=== PATIENT | female | born 1945 | race Caucasian/White ===

== ENCOUNTER 2017-09-09 12:20 | Inpatient (IN) | payer MEDICARE, MEDICAID ==
[~2017-09-09] VITALS: Ht 162.6 cm; Wt 95.8 kg
[2017-09-09] MEDS ORDERED: NITROGLYCERIN 0.4 MG BOTTLE (25 TABS) SL PRN ×2 (18:30→23:00)
[2017-09-09] MEDS ORDERED: NITROGLYCERIN 0.4 MG/SPRAY SL PRN (18:30)
[2017-09-09 18:32] VITALS: BP 119/77
[2017-09-09 18:56] LABS: BASOPHILS # (AUTO) 0.09 x10^3/uL (0-0.1); BASOPHILS % (AUTO) 2 % (0-1); EOSINOPHILS # (AUTO) 0.19 x10^3/uL (0-0.4); EOSINOPHILS % (AUTO) 4 % (1-7); LYMPHOCYTES # (AUTO) 1.46 x10^3/uL (1-3.4); LYMPHOCYTES % (AUTO) 29 % (22-44); MD NO; MEAN CORPUSCULAR HEMOGLOBIN 35.2 pg (27.0-34.8); MEAN CORPUSCULAR HGB CONC 33.7 g/dL (32.4-35.8); MEAN CORPUSCULAR VOLUME 104.3 fL (80-100); MEAN PLATELET VOLUME 8.3 fL (7.4-10.4); MONOCYTES # (AUTO) 0.32 x10^3/uL (0.2-0.8); MONOCYTES % (AUTO) 6 % (2-9); NEUTROPHILS # (AUTO) 3.04 x10^3/uL (1.8-6.8); NEUTROPHILS % (AUTO) 60 % (42-75); PLATELET COUNT 218 x10^3/uL (130-400); RED BLOOD COUNT 3.64 x10^6/uL (3.82-5.3); RED CELL DISTRIBUTION WIDTH 13.4 % (9.6-15.2)
[2017-09-09] MEDS ORDERED: PLEASE ENTER ALLERGIES MC SCH (19:00)
[2017-09-09 19:04] LABS: ANION GAP 4 mmol/L (5-15); CALCIUM 9.2 mg/dL (8.5-10.1); CHLORIDE 104 mmol/L (98-107); CREATININE 0.72 mg/dL (0.55-1.02)
[2017-09-09] MEDS ORDERED: PLEASE ENTER HEIGHT AND WEIGHT MC SCH (21:30)
[2017-09-09] MEDS ORDERED: ASPI-496 PO (21:44)
[2017-09-09] MEDS ORDERED: OXYC-302 PO (21:44)
[2017-09-09] MEDS ORDERED: PARO40TA61 PO (21:44)
[2017-09-09] MEDS ORDERED: ROPI0.25 PO (21:53)
[2017-09-09] MEDS ORDERED: GABA300C PO (21:53)
[2017-09-09] MEDS ORDERED: MELO15TA6 PO (21:53)
[2017-09-09] MEDS ORDERED: TIOT18CA INH (21:53)
[2017-09-09] MEDS ORDERED: LEVO50TA5 PO (21:53)
[2017-09-09] MEDS ORDERED: FLUT9.9S NS (21:53)
[2017-09-09] MEDS ORDERED: POTA10TA11 PO (21:53)
[2017-09-09] MEDS ORDERED: FURO-93 PO (21:56)
[2017-09-09] MEDS ORDERED: PRAM0.125 PO (22:03)
[2017-09-09] MEDS ORDERED: POLYETHYLENE GLYCOL 17 GM PACKET PO PRN (23:00)
[2017-09-09] MEDS ORDERED: ACETAMINOPHEN 325 MG TABLET PO PRN (23:00)
[2017-09-09] MEDS ORDERED: PROMETHAZINE 25 MG/ML, 1ML IM PRN (23:00)
[2017-09-09] MEDS: IPRATROPIUM 0.5 MG/2.5 ML INHA HHN SCH (23:00)
[2017-09-09] MEDS ORDERED: ONDANSETRON 2MG/ML, 2ML IVPush PRN (23:00)
[2017-09-09] MEDS ORDERED: hydrALAzine 20 MG/ML, 1ML IVPush PRN (23:00)
[2017-09-09] MEDS ORDERED: BISACODYL 10 MG SUPP PR PRN (23:00)
[2017-09-09] MEDS ORDERED: DOCUSATE 100 MG CAPSULE PO PRN (23:00)
[2017-09-09] MEDS ORDERED: ONDANSETRON ODT 4 MG PO PRN (23:00)
[2017-09-09] MEDS ORDERED: GABAPENTIN 300 MG CAPSULE ONE (23:26)
[2017-09-09 23:30] LABS: FREE T4 (FREE THYROXINE) 0.86 ng/dL (0.76-1.46); THYROID STIMULATING HORMONE 1.26 mIU/L (0.358-3.740)
[2017-09-09] MEDS ORDERED: ALBUTEROL SULFATE 2.5 MG/3 ML NPPB PRN (23:30)
[2017-09-09] MEDS: OXYcodone/APAP 5/325MG TABLET PO PRN (23:36)
[2017-09-09] MEDS: PRAMIPEXOLE 0.125MG TABLET PO SCH (23:37)
[2017-09-09] MEDS: HEPARIN 5,000 UNITS/ML, 1ML SQ SCH (23:37)
[2017-09-09] MEDS: GABAPENTIN 300 MG CAPSULE PO SCH (23:37)
[2017-09-10 01:19] VITALS: BP 108/67
[2017-09-10 02:32] LABS: MICROSCOPIC AUTO
[2017-09-10 02:39] LABS: CULTURE INDICATED? YES
[2017-09-10] MEDS: IPRATROPIUM 0.5 MG/2.5 ML INHA HHN SCH ×4 (05:00→20:48)
[2017-09-10] MEDS: ASPIRIN 325 MG TABLET EC PO SCH (05:12)
[2017-09-10 05:42] LABS: BASOPHILS # (AUTO) 0.05 x10^3/uL (0-0.1); BASOPHILS % (AUTO) 1 % (0-1); EOSINOPHILS # (AUTO) 0.22 x10^3/uL (0-0.4); EOSINOPHILS % (AUTO) 5 % (1-7); LYMPHOCYTES % (AUTO) 36 % (22-44); MD NO; MEAN CORPUSCULAR HEMOGLOBIN 35.1 pg (27.0-34.8); MEAN CORPUSCULAR HGB CONC 33.9 g/dL (32.4-35.8); MEAN CORPUSCULAR VOLUME 103.7 fL (80-100); MEAN PLATELET VOLUME 8.7 fL (7.4-10.4); MONOCYTES # (AUTO) 0.32 x10^3/uL (0.2-0.8); MONOCYTES % (AUTO) 6 % (2-9); NEUTROPHILS # (AUTO) 2.59 x10^3/uL (1.8-6.8); NEUTROPHILS % (AUTO) 52 % (42-75); PLATELET COUNT 207 x10^3/uL (130-400); RED BLOOD COUNT 3.67 x10^6/uL (3.82-5.3); RED CELL DISTRIBUTION WIDTH 13.5 % (9.6-15.2)
[2017-09-10 05:52] LABS: CHLORIDE 105 mmol/L (98-107)
[2017-09-10 06:02] LABS: ALANINE AMINOTRANSFERASE 25 U/L (12-78); ALBUMIN 3.3 g/dL (3.4-5.0); ALKALINE PHOSPHATASE 56 U/L (45-117); ANION GAP 6 mmol/L (5-15); BILIRUBIN,TOTAL 0.5 mg/dL (0.2-1.0); CALCIUM 8.6 mg/dL (8.5-10.1); CHOL/HDL RATIO 3.2; CHOLESTEROL, TOTAL 198 mg/dL (140-239); CREATININE 0.68 mg/dL (0.55-1.02); HDL CHOL % 31 % (28-40); HDL CHOLESTEROL (DIRECT) 62 mg/dL (40-60); LDL CHOLESTEROL,CALCULATED 118 mg/dL (54-169); LDL/HDL RATIO 1.9 (0.5-3.0); TOTAL PROTEIN 6.8 g/dL (6.4-8.2); TRIGLYCERIDES 91 mg/dL (50-200); VLDL CHOLESTEROL 18 mg/dL (0-25)
[2017-09-10] MEDS: HEPARIN 5,000 UNITS/ML, 1ML SQ SCH (07:00)
[2017-09-10 07:49] VITALS: BP 107/69
[2017-09-10 07:51] LABS: INTERNATIONAL NORMALIZED RATIO 0.95 (0.93-1.1); PROTHROMBIN TIME 9.9 Seconds (9.6-11.5)
[2017-09-10] MEDS ORDERED: GABAPENTIN 300 MG CAPSULE PO SCH (09:00)
[2017-09-10] MEDS: PAROXETINE 20 MG TABLET PO SCH (09:26)
[2017-09-10] MEDS: LEVOTHYROXINE 50 MCG TABLET PO SCH (09:26)
[2017-09-10] MEDS: GABAPENTIN 300 MG CAPSULE PO SCH ×3 (09:26→20:44)
[2017-09-10] MEDS: PRAMIPEXOLE 0.125MG TABLET PO SCH ×3 (09:26→20:44)
[2017-09-10] MEDS: OXYcodone/APAP 5/325MG TABLET PO PRN ×2 (09:26→23:49)
[2017-09-10 13:10] VITALS: BP 112/74
[2017-09-10] MEDS ORDERED: FENTANYL PF 100 MCG/2ML ONE (14:56)
[2017-09-10] MEDS ORDERED: MIDAZOLAM 1 MG/ML, 2ML ONE (14:56)
[2017-09-10] MEDS ORDERED: HEPARIN 1,000 UNITS/ML, 10ML ONE (14:56)
[2017-09-10] MEDS ORDERED: LIDOCAINE-MPF 2% ,5ML ONE (14:56)
[2017-09-10] MEDS ORDERED: VERAPAMIL 2.5 MG/ML, 2ML ONE (14:56)
[2017-09-10 19:16] VITALS: BP 95/61
[2017-09-10] MEDS ORDERED: TEMPLATE NON-FORMULARY MED. (Aspirin** (Aspir 81**) 81 MG) PO SCH (21:00)
[2017-09-11 00:38] VITALS: BP 96/53
[2017-09-11] MEDS: IPRATROPIUM 0.5 MG/2.5 ML INHA HHN SCH ×4 (02:32→23:00)
[2017-09-11 05:04] LABS: ALBUMIN 3.2 g/dL (3.4-5.0); ANION GAP 7 mmol/L (5-15); CALCIUM 8.7 mg/dL (8.5-10.1); CHLORIDE 103 mmol/L (98-107); CREATININE 0.77 mg/dL (0.55-1.02)
[2017-09-11] MEDS: ASPIRIN 325 MG TABLET EC PO SCH (05:42)
[2017-09-11] MEDS: GABAPENTIN 300 MG CAPSULE PO SCH ×3 (07:43→19:43)
[2017-09-11] MEDS: LEVOTHYROXINE 50 MCG TABLET PO SCH (07:43)
[2017-09-11] MEDS: PAROXETINE 20 MG TABLET PO SCH (07:43)
[2017-09-11] MEDS: PRAMIPEXOLE 0.125MG TABLET PO SCH ×3 (07:44→19:43)
[2017-09-11 08:40] VITALS: BP 100/58
[2017-09-11 13:44] VITALS: BP 103/64
[2017-09-11] MEDS: HEPARIN 5,000 UNITS/ML, 1ML SQ SCH ×2 (16:11→23:51)
[2017-09-11 19:03] VITALS: BP 105/67
[2017-09-12 01:01] VITALS: BP 97/61
[2017-09-12] MEDS: PRAMIPEXOLE 0.125MG TABLET PO SCH ×3 (03:55→19:44)
[2017-09-12] MEDS: IPRATROPIUM 0.5 MG/2.5 ML INHA HHN SCH (05:00)
[2017-09-12] MEDS: ASPIRIN 325 MG TABLET EC PO SCH (05:57)
[2017-09-12 07:06] VITALS: BP 102/64
[2017-09-12] MEDS ORDERED: IPRATROPIUM 0.5 MG/2.5 ML INHA ONE (07:14)
[2017-09-12] MEDS: HEPARIN 5,000 UNITS/ML, 1ML SQ SCH ×2 (07:30→16:48)
[2017-09-12] MEDS: LEVOTHYROXINE 50 MCG TABLET PO SCH (08:44)
[2017-09-12] MEDS: PAROXETINE 20 MG TABLET PO SCH (08:44)
[2017-09-12] MEDS: GABAPENTIN 300 MG CAPSULE PO SCH ×3 (08:44→19:45)
[2017-09-12] MEDS: OXYcodone/APAP 5/325MG TABLET PO PRN (08:53)
[2017-09-12] MEDS: IPRATROPIUM 0.5 MG/2.5 ML INHA NPPB SCH ×3 (09:00→19:02)
[2017-09-12 11:27] VITALS: BP 109/69
[2017-09-12] MEDS: FUROSEMIDE 20 MG TABLET PO SCH (11:29)
[2017-09-12 13:25] VITALS: BP 111/74
[2017-09-12 19:14] VITALS: BP 111/67
[2017-09-13 00:49] VITALS: BP 105/54
[2017-09-13] MEDS: HEPARIN 5,000 UNITS/ML, 1ML SQ SCH ×2 (00:49→08:37)
[2017-09-13] MEDS: IPRATROPIUM 0.5 MG/2.5 ML INHA NPPB SCH ×2 (02:50→10:22)
[2017-09-13] MEDS: PRAMIPEXOLE 0.125MG TABLET PO SCH ×2 (05:04→12:58)
[2017-09-13] MEDS: ASPIRIN 325 MG TABLET EC PO SCH (05:05)
[2017-09-13 05:37] VITALS: BP 94/58
[2017-09-13] MEDS: OXYcodone/APAP 5/325MG TABLET PO PRN (05:42)
[2017-09-13 06:30] VITALS: BP 97/59
[2017-09-13] MEDS: PAROXETINE 20 MG TABLET PO SCH (08:37)
[2017-09-13] MEDS: GABAPENTIN 300 MG CAPSULE PO SCH (08:37)
[2017-09-13] MEDS: FUROSEMIDE 20 MG TABLET PO SCH (08:37)
[2017-09-13] MEDS: LEVOTHYROXINE 50 MCG TABLET PO SCH (08:37)
[2017-09-13] MEDS ORDERED: ALBU18HF INH (11:18)
== END 2017-09-13 15:19 | disposition home health service (06) | DRG 286 ==
LOC: 5SO 17:47 → DCLOUNGE 09-13 14:54
PROVIDERS: ADMIT Internal Medicine Cardiovascular Disease; ATTEND Internal Medicine Cardiovascular Disease
PROC: 4A023N7 Measurement of Cardiac Sampling and Pressure, Left Heart, Percutaneous Approach (ICD-10-PCS; principal; 2017-09-10)
PROC: B2111ZZ Fluoroscopy of Multiple Coronary Arteries using Low Osmolar Contrast (ICD-10-PCS; 2017-09-10)
PROC: B2151ZZ Fluoroscopy of Left Heart using Low Osmolar Contrast (ICD-10-PCS; 2017-09-10)
DX: I35.0 Nonrheumatic aortic (valve) stenosis (principal); J96.21 Acute and chronic respiratory failure with hypoxia; I25.10 Atherosclerotic heart disease of native coronary artery without angina pectoris; C50.919 Malignant neoplasm of unspecified site of unspecified female breast; M19.90 Unspecified osteoarthritis, unspecified site; I50.9 Heart failure, unspecified; J44.9 Chronic obstructive pulmonary disease, unspecified; G62.9 Polyneuropathy, unspecified; G25.81 Restless legs syndrome; G89.29 Other chronic pain; M54.9 Dorsalgia, unspecified; E89.0 Postprocedural hypothyroidism; F32.9 Major depressive disorder, single episode, unspecified; Z85.3 Personal history of malignant neoplasm of breast; Z86.711 Personal history of pulmonary embolism; Z87.891 Personal history of nicotine dependence; Z92.3 Personal history of irradiation; Z99.81 Dependence on supplemental oxygen; Z95.2 Presence of prosthetic heart valve; Z82.49 Family history of ischemic heart disease and other diseases of the circulatory system; Z79.82 Long term (current) use of aspirin; Z90.89 Acquired absence of other organs
CPT/HCPCS: 36415; 80048; 80053; 80061; 81001; 82040; 82306; 82607; 83036; 83735; 84439; 84443; 85025; 85610; 85730; 87086; 93005; 93306; 93458; 94640; 99156; 99157; C1769; C1894; J1644; J2250; J3010; J3490; J7644; Q9967

== ENCOUNTER → 2017-10-01 | Outpatient (CLI) | payer MEDICARE, MEDICAID, OTHER ==
[~2017-10-01] MED LIST: ALBU18HF INH; ASPI-496 PO; FLUT9.9S NS; FURO-93 PO; GABA300C PO; LEVO50TA5 PO; MELO15TA6 PO; OMNIPAQUE 350 MG/ML, 150 ML BOTTLE ONE; OXYC-302 PO; PARO40TA61 PO; POTA10TA11 PO; PRAM0.125 PO; ROPI0.25 PO; TIOT18CA INH
== END | disposition home or self-care (01) ==
LOC: CVU 08:14
PROVIDERS: ATTEND Internal Medicine Cardiovascular Disease
DX: I65.23 Occlusion and stenosis of bilateral carotid arteries (principal); I51.7 Cardiomegaly; I70.1 Atherosclerosis of renal artery; I70.8 Atherosclerosis of other arteries; J44.9 Chronic obstructive pulmonary disease, unspecified; K44.9 Diaphragmatic hernia without obstruction or gangrene; J98.4 Other disorders of lung; Z85.3 Personal history of malignant neoplasm of breast; Z90.49 Acquired absence of other specified parts of digestive tract
CPT/HCPCS: 71275; 74174; 93880; 94060; 94726; 94729; Q9967

== ENCOUNTER 2017-10-15 06:13 | Inpatient (IN) | payer MEDICARE, MEDICAID ==
[~2017-10-15] VITALS: Ht 162.6 cm; Wt 99.6 kg
[~2017-10-15 06:13] MED LIST changes: -OMNIPAQUE 350 MG/ML, 150 ML BOTTLE ONE
[2017-10-15] MEDS ORDERED: SODIUM CHLORIDE 0.9% 1,000 ML IV ONE (08:40)
[2017-10-15 08:57] VITALS: BP 116/63
[2017-10-15] MEDS ORDERED: ONDANSETRON 2MG/ML, 2ML IVPush PRN (09:00)
[2017-10-15] MEDS ORDERED: CHLORHEXIDINE 15 ML BOTTLE MM PRN (09:00)
[2017-10-15] MEDS ORDERED: FENTANYL PF 250 MCG/5ML ONE (09:17)
[2017-10-15] MEDS ORDERED: HEPARIN 1,000 UNITS/ML, 10ML ONE (09:21)
[2017-10-15] MEDS ORDERED: PROTAMINE SULFATE 10 MG/ML, 5ML ONE (09:21)
[2017-10-15] MEDS ORDERED: CEFAZOLIN 1,000 MG ONE (09:21)
[2017-10-15 09:26] LABS: BASOPHILS # (AUTO) 0.04 x10^3/uL (0-0.1); BASOPHILS % (AUTO) 1 % (0-1); EOSINOPHILS # (AUTO) 0.07 x10^3/uL (0-0.4); EOSINOPHILS % (AUTO) 1 % (1-7); LYMPHOCYTES # (AUTO) 1.46 x10^3/uL (1-3.4); LYMPHOCYTES % (AUTO) 32 % (22-44); MD NO; MEAN CORPUSCULAR HEMOGLOBIN 34.9 pg (27.0-34.8); MEAN CORPUSCULAR HGB CONC 34.1 g/dL (32.4-35.8); MEAN CORPUSCULAR VOLUME 102.4 fL (80-100); MEAN PLATELET VOLUME 8.6 fL (7.4-10.4); MONOCYTES # (AUTO) 0.32 x10^3/uL (0.2-0.8); MONOCYTES % (AUTO) 7 % (2-9); NEUTROPHILS # (AUTO) 2.68 x10^3/uL (1.8-6.8); NEUTROPHILS % (AUTO) 59 % (42-75); PLATELET COUNT 167 x10^3/uL (130-400); RED BLOOD COUNT 3.49 x10^6/uL (3.82-5.3); RED CELL DISTRIBUTION WIDTH 12.8 % (9.6-15.2)
[2017-10-15] MEDS ORDERED: PLEASE ENTER HEIGHT AND WEIGHT MC SCH (09:30)
[2017-10-15 09:33] LABS: INTERNATIONAL NORMALIZED RATIO 1.02 (0.93-1.1); PROTHROMBIN TIME 10.5 Seconds (9.6-11.5)
[2017-10-15 09:34] LABS: ALBUMIN 3.8 g/dL (3.4-5.0); ANION GAP 7 mmol/L (5-15); CALCIUM 8.4 mg/dL (8.5-10.1); CHLORIDE 104 mmol/L (98-107)
[2017-10-15] MEDS ORDERED: LORA0.5T PO (09:34)
[2017-10-15 09:40] LABS: ALANINE AMINOTRANSFERASE 23 U/L (12-78); ALKALINE PHOSPHATASE 50 U/L (45-117); BILIRUBIN,TOTAL 0.4 mg/dL (0.2-1.0); CREATININE 0.94 mg/dL (0.55-1.02); TOTAL PROTEIN 7.1 g/dL (6.4-8.2)
[2017-10-15] MEDS ORDERED: MIDAZOLAM 1 MG/ML, 2ML ONE (09:42)
[2017-10-15] MEDS ORDERED: SODIUM CHLORIDE 0.9% 1,000 ML IV SCH (11:29)
[2017-10-15] MEDS ORDERED: LABETALOL 20 MG/4 ML IVPush PRN (11:30)
[2017-10-15] MEDS ORDERED: hydrALAzine 20 MG/ML, 1ML IVPush PRN (11:30)
[2017-10-15] MEDS ORDERED: LORazepam 0.5MG TABLET PO PRN (12:00)
[2017-10-15] MEDS ORDERED: ALBUTEROL SULFATE 2.5 MG/3 ML HHN PRN (12:00)
[2017-10-15] MEDS: ALBUTEROL/IPRATROPIUM 2.5MG/0.5MG, 3 ML NPPB SCH ×2 (13:55→19:12)
[2017-10-15] MEDS: OXYcodone/APAP 5/325MG TABLET PO PRN (16:14)
[2017-10-15] MEDS: PRAMIPEXOLE 0.125MG TABLET PO SCH ×2 (16:14→21:13)
[2017-10-15] MEDS: GABAPENTIN 300 MG CAPSULE PO SCH ×2 (16:14→21:12)
[2017-10-15] MEDS ORDERED: IPRATROPIUM 0.5 MG/2.5 ML INHA HHN SCH (21:00)
[2017-10-15] MEDS ORDERED: MELOXICAM 15 MG TABLET PO SCH (21:00)
[2017-10-15] MEDS ORDERED: TEMPLATE NON-FORMULARY MED. (Aspirin** (Aspir 81**) 81 MG) PO SCH (21:00)
[2017-10-15] MEDS ORDERED: CLOPIDOGREL 300 MG TABLET PO ONE (21:00)
[2017-10-16 02:00] VITALS: BP 116/33
[2017-10-16] MEDS: OXYcodone/APAP 5/325MG TABLET PO PRN (02:30)
[2017-10-16 04:52] LABS: BASOPHILS # (AUTO) 0.03 x10^3/uL (0-0.1); BASOPHILS % (AUTO) 1 % (0-1); EOSINOPHILS # (AUTO) 0.03 x10^3/uL (0-0.4); EOSINOPHILS % (AUTO) 1 % (1-7); LYMPHOCYTES # (AUTO) 1.27 x10^3/uL (1-3.4); LYMPHOCYTES % (AUTO) 19 % (22-44); MD NO; MEAN CORPUSCULAR HEMOGLOBIN 34.9 pg (27.0-34.8); MEAN CORPUSCULAR HGB CONC 33.7 g/dL (32.4-35.8); MEAN CORPUSCULAR VOLUME 103.6 fL (80-100); MEAN PLATELET VOLUME 8.7 fL (7.4-10.4); MONOCYTES # (AUTO) 0.38 x10^3/uL (0.2-0.8); MONOCYTES % (AUTO) 6 % (2-9); NEUTROPHILS # (AUTO) 4.83 x10^3/uL (1.8-6.8); NEUTROPHILS % (AUTO) 74 % (42-75); PLATELET COUNT 121 x10^3/uL (130-400); RED CELL DISTRIBUTION WIDTH 13.4 % (9.6-15.2)
[2017-10-16 05:02] LABS: CHLORIDE 107 mmol/L (98-107)
[2017-10-16 05:10] LABS: ALBUMIN 3.1 g/dL (3.4-5.0); ANION GAP 4 mmol/L (5-15); CREATININE 0.73 mg/dL (0.55-1.02)
[2017-10-16] MEDS: ALBUTEROL/IPRATROPIUM 2.5MG/0.5MG, 3 ML NPPB SCH ×3 (06:47→19:38)
[2017-10-16 08:26] VITALS: BP 118/65
[2017-10-16] MEDS ORDERED: ASPIRIN 81 MG TABLET EC PO SCH (09:00)
[2017-10-16] MEDS ORDERED: PAROXETINE 20 MG TABLET PO SCH (09:00)
[2017-10-16] MEDS ORDERED: POTASSIUM CHLORIDE 10 MEQ TABLET.ER PO SCH (09:00)
[2017-10-16] MEDS ORDERED: FUROSEMIDE 20 MG TABLET PO SCH (09:00)
[2017-10-16] MEDS ORDERED: LEVOTHYROXINE 50 MCG TABLET PO SCH (09:00)
[2017-10-16] MEDS ORDERED: CLOPIDOGREL 75 MG TABLET PO SCH (09:00)
[2017-10-16] MEDS: GABAPENTIN 300 MG CAPSULE PO SCH ×2 (09:30→17:06)
[2017-10-16] MEDS: PRAMIPEXOLE 0.125MG TABLET PO SCH ×2 (09:31→17:06)
[2017-10-16] MEDS ORDERED: ROCURONIUM 10 MG/ML,10ML ONE (09:48)
[2017-10-16] MEDS ORDERED: ONDANSETRON 2MG/ML, 2ML ONE (09:48)
[2017-10-16] MEDS ORDERED: PROPOFOL 10 MG/ML, 20ML ONE (09:48)
[2017-10-16] MEDS ORDERED: SUCCINYLCHOLINE 20 MG/ML, 10ML ONE (09:48)
[2017-10-16] MEDS ORDERED: DEXAMETHASONE 4 MG/ML, 1ML ONE (09:48)
[2017-10-16 14:00] VITALS: BP 95/54
[2017-10-16] MEDS ORDERED: CLOP75TA PO (14:23)
== END 2017-10-16 20:35 | disposition home or self-care (01) | DRG 266 ==
LOC: ORIP 08:32 → CCU 09:21 → 5SO 10-16 06:22
PROVIDERS: ADMIT Internal Medicine Cardiovascular Disease; ATTEND Internal Medicine Cardiovascular Disease
PROC: B3101ZZ Fluoroscopy of Thoracic Aorta using Low Osmolar Contrast (ICD-10-PCS; 2017-10-15)
PROC: B24BZZ4 Ultrasonography of Heart with Aorta, Transesophageal (ICD-10-PCS; 2017-10-15)
PROC: 02RF38Z Replacement of Aortic Valve with Zooplastic Tissue, Percutaneous Approach (ICD-10-PCS; principal; 2017-10-15 10:00)
DX: I35.0 Nonrheumatic aortic (valve) stenosis (principal); Z00.6 Encounter for examination for normal comparison and control in clinical research program; I50.33 Acute on chronic diastolic (congestive) heart failure; J44.9 Chronic obstructive pulmonary disease, unspecified; M19.90 Unspecified osteoarthritis, unspecified site; Z85.3 Personal history of malignant neoplasm of breast; Z86.711 Personal history of pulmonary embolism; Z87.891 Personal history of nicotine dependence; Z99.81 Dependence on supplemental oxygen
CPT/HCPCS: 33361; 36415; 80048; 80053; 82040; 83880; 85025; 85347; 85610; 85730; 86850; 86900; 86923; 87081; 93005; 93306; 93312; 93321; 93325; 93355; 94640; C1760; C1769; C1894; J0690; J1100; J1644; J2250; J2405; J2704; J2720; J3010; J7620; J0330; J0360; J3490; J7030; Q9967